=== PATIENT | female | born 1940 | race Caucasian/White ===

== ENCOUNTER 2017-03-11 14:41 | Emergency (ER) | payer OTHER, BC ==
--- NOTE | 2017-03-11 15:04 | PDOC ---
Rapid Medical Evaluation Chief Complaint: Pain, Acute Medical Evaluation: Allergies Allergy/AdvReac Type Severity Reaction Status Date / Time No Known Allergies Allergy Verified 03/11/17 15:02 03/11/17 15:03 I have performed a brief in-person evaluation of this patient. The patient presents with a chief complaint of:abdominal pain/constipation Pertinent physical exam findings:none I have ordered the following:ua, labs The patient will proceed to the ED for further evaluation.
[2017-03-11 15:06] VITALS: TEMP 97.9; BMI 23.0
[2017-03-11 16:59] LABS: BASOPHIL 0.5 % (0-2.0); MCH 30.1 pg (25.7-33.7); MCHC 33.2 g/dl (32.0-36.0); MEAN CELL VOLUME 90.7 fl (80-96); MEAN PLT VOLUME 8.6 fl (7.5-11.1); NEUTROPHILS 85.7 % (42.8-82.8); PLATELET COUNT 271 K/MM3 (134-434); WHITE BLOOD COUNT 13.9 K/mm3 (4.0-10.0)
[2017-03-11 17:37] LABS: ALBUMIN 4.4 g/dl (3.4-5.0); BILIRUBIN,TOTAL 0.5 mg/dL (0.2-1.0); CALCIUM 10.1 mg/dL (8.5-10.1); COCKROFT - GAULT 43.1545; TOT PROT 8.3 g/dl (6.4-8.2)
--- NOTE | 2017-03-11 18:23 | PDOC ---
History of Present Illness - General History Source: Patient Exam Limitations: No Limitations - History of Present Illness Initial Comments: 03/11/17 18:23 CHIEF COMPLAINT: Abdominal pain HISTORY OF PRESENT ILLNESS: This is a 77 year old female with a history of colon ca (in 1989 with recurrence in 1991, s/p resection and chemotherapy) HTN, NIDDM, and mild dementia who presents complaining of 3 days of intermittent, generalized abdominal pain and constipation. She was able to have a small bm yesterday and today, but still feels constipated. She complains of nausea. She denies fevers/chills, dysuria, or any other symptoms. V/s on arrival are notable for P 111. Surgical history: colon resection, cholecystectomy PCP is Dr. Gagnon GI is Dr. Neff REVIEW OF SYSTEMS: GENERAL/CONSTITUTIONAL: No fever or chills. No weakness. No weight change. HEAD, EYES, EARS, NOSE AND THROAT: No change in vision. No ear pain or discharge. No sore throat. CARDIOVASCULAR: No chest pain or palpitations. RESPIRATORY: No cough, wheezing, or shortness of breath. GASTROINTESTINAL: See HPI. GENITOURINARY: No dysuria, frequency, or change in urination. MUSCULOSKELETAL: No joint or muscle swelling or pain. No neck or back pain. SKIN: No rash or easy bruising. NEUROLOGIC: No headache, vertigo, loss of consciousness, or loss of sensation. PSYCHIATRIC: No depression or anxiety. ENDOCRINE: No increased thirst. No abnormal weight change. HEMATOLOGIC/LYMPHATIC: No anemia, easy bleeding, or history of blood clots. ALLERGIC/IMMUNOLOGIC: No hives or skin allergy. No latex allergy. PHYSICAL EXAM: GENERAL: The patient is awake, alert, and fully oriented, in no acute distress. HEAD: Normal with no signs of trauma. ENT: Pupils equal, round and reactive to light, extraocular movements intact, sclera anicteric, conjunctiva clear. Neck supple. LUNGS: Clear to auscultation bilaterally. Normal excursion. No respiratory distress or use of accessory muscles. CV: RRR, S1/S2, no MRG. Cap refill < 2 sec. ABDOMEN: Soft, non-distended, tender to palpation in RLQ>LLQ with some guarding , no rebound tenderness. EXTREMITIES: Normal range of motion, no edema. NEUROLOGICAL: Normal speech, normal gait. CN II-XII grossly intact. PSYCH: Normal mood, normal affect. SKIN: Warm, dry, normal turgor, no rashes or lesions noted. <Lucille Mejia - Last Filed: 03/11/17 18:29> <Serge Fernandez - Last Filed: 03/11/17 22:37> - General Chief Complaint: Pain Stated Complaint: ABD PAIN Time Seen by Provider: 03/11/17 16:40 Past History - Past Medical History Anemia: No Asthma: No Cancer: Yes (COLON CANCER) CVA: No COPD: No CHF: No Dementia: No Diabetes: No GI Disorders: Yes (CONSTIPATION,HEMORRHOIDS,EPIGASTRIC PAIN) Disorders: No HTN: No Hypercholesterolemia: No Liver Disease: No Seizures: No Thyroid Disease: No - Surgical History Abdominal Surgery: No Appendectomy: No Cardiac Surgery: No Cholecystectomy: Yes Lung Surgery: No Neurologic Surgery: No Orthopedic Surgery: No - Immunization History Immunization Up to Date: Yes - Psycho/Social/Smoking Cessation Hx Suicidal Ideation: No Smoking History: Never smoked Have you smoked in the past 12 months: No Hx Alcohol Use: No Drug/Substance Use Hx: No Substance Use Type: None Hx Substance Use Treatment: No <Lucille Mejia - Last Filed: 03/11/17 18:29> <Serge Fernandez - Last Filed: 03/11/17 22:37> - Past Medical History Allergies/Adverse Reactions: Allergies Allergy/AdvReac Type Severity Reaction Status Date / Time No Known Allergies Allergy Verified 03/11/17 15:02 Home Medications: Ambulatory Orders Donepezil HCl [Aricept -] 10 mg PO DAILY 06/09/14 Losartan/Hydrochlorothiazide [Losartan-Hctz 100-12.5 mg Tab] 1 tab PO DAILY 12/18 Raloxifene HCl [Evista] 1 tab PO DAILY 06/09/14 Polyethylene Glycol 3350 [Miralax (For Bowel Prep) -] 17 gm PO DAILY #1 bottle 03/11/17 *Physical Exam - Vital Signs Last Vital Signs Temp Pulse Resp BP Pulse Ox 97.9 F 111 H 18 156/94 100 03/11/17 15:03 03/11/17 15:03 03/11/17 15:03 03/11/17 15:03 03/11/17 15:03 <Lucille Mejia - Last Filed: 03/11/17 18:29> - Vital Signs Last Vital Signs Temp Pulse Resp BP Pulse Ox 97.9 F 111 H 18 156/94 100 03/11/17 15:03 03/11/17 15:03 03/11/17 15:03 03/11/17 15:03 03/11/17 15:03 <Serge Fernandez - Last Filed: 03/11/17 22:37> ED Treatment Course - LABORATORY CBC & Chemistry Diagram: 03/11/17 16:15 03/11/17 16:15 - ADDITIONAL ORDERS Additional order review: Laboratory Results 03/11/17 16:15 Sodium 136 Potassium 3.9 Chloride 98 Carbon Dioxide 23 Anion Gap 15 BUN 11 Creatinine 1.0 D Creat Clearance w eGFR 53.62 Random Glucose 225 H Calcium 10.1 Total Bilirubin 0.5 AST 32 ALT 32 Alkaline Phosphatase 110 Total Protein 8.3 H Albumin 4.4 Lipase 89 03/11/17 16:15 RBC 4.59 MCV 90.7 MCHC 33.2 RDW 13.0 MPV 8.6 Neutrophils % 85.7 H Lymphocytes % 9.8 Monocytes % 4.0 Eosinophils % 0.0 Basophils % 0.5 - RADIOLOGY Radiology Studies Ordered: Category Date Time Status ABDOMEN FLAT & UPRIGHT [RAD] Stat Radiology 03/11/17 18:15 Ordered <Lucille Mejia - Last Filed: 03/11/17 18:29> - LABORATORY CBC & Chemistry Diagram: 03/11/17 16:15 03/11/17 16:15 - ADDITIONAL ORDERS Additional order review: Laboratory Results 03/11/17 03/11/17 19:22 16:15 Sodium 136 Potassium 3.9 Chloride 98 Carbon Dioxide 23 Anion Gap 15 BUN 11 Creatinine 1.0 D Creat Clearance w eGFR 53.62 Random Glucose 225 H Calcium 10.1 Total Bilirubin 0.5 AST 32 ALT 32 Alkaline Phosphatase 110 Total Protein 8.3 H Albumin 4.4 Lipase 89 Urine Color Yellow Urine Appearance Clear Urine pH 5.0 Urine Protein 2+ H Urine Glucose (UA) 2+ H Urine Ketones Trace H Urine Blood Negative Urine Nitrite Negative Urine Bilirubin Negative Urine Urobilinogen Negative Ur Leukocyte Esterase Negative Urine RBC 1 Urine WBC 6 Ur Epithelial Cells Rare Urine Mucus Rare 03/11/17 16:15 RBC 4.59 MCV 90.7 MCHC 33.2 RDW 13.0 MPV 8.6 Neutrophils % 85.7 H Lymphocytes % 9.8 Monocytes % 4.0 Eosinophils % 0.0 Basophils % 0.5 <Serge Fernandez - Last Filed: 03/11/17 22:37> Medical Decision Making - Medical Decision Making 03/11/17 18:37 A/P: 77 year old female with abdominal pain, nausea, and constipation. 1. EKG (tachycardia) 2. Abdominal labs sent from [facility] - notable for WBC 13.6 3. UA 4. CTAP with PO/IV contrast <Lucille Mejia - Last Filed: 03/11/17 18:29> *DC/Admit/Observation/Transfer <Lucille Mejia - Last Filed: 03/11/17 18:29> - Discharge Dispostion Admit: No <Serge Fernandez - Last Filed: 03/11/17 22:37> Diagnosis at time of Disposition: Constipation Qualifiers: Constipation type: other constipation type Qualified Code(s): K59.09 - Other constipation - Discharge Dispostion Disposition: HOME Condition at time of disposition: Improved - Prescriptions Prescriptions: Polyethylene Glycol 3350 [Miralax (For Bowel Prep) -] 17 gm PO DAILY #1 bottle - Referrals Referrals: Drake Blakely MD [Staff Physician] - - Patient Instructions Printed Discharge Instructions: DI for Constipation Additional Instructions: FOLLOW UP WITH YOUR PRIMARY CARE PROVIDER WITHIN 72 HOURS FOR FURTHER EVALUATION. DRINK PLENTY WATER. TAKE MEDICATIONS PRESCRIBED. ALSO, FOLLOW UP WITH YOUR CLASSIFIER OR DR. BLAKELY (GASTROENTEROLOGY) REGARDING YOUR VISIT TODAY. RETURN IF YOU DEVELOP FEVER, OR ANY OTHER CONCERNS FOR FURTHER EVALUATION. Print Language: PORTUGUESE
[2017-03-11 19:32] LABS: URINE APPEARANCE CLEAR; URINE BILIRUBIN NEGATIVE (NEGATIVE); URINE BLOOD NEGATIVE (NEGATIVE); URINE COLOR YELLOW; URINE GLUCOSE (UA) 2+ (NEGATIVE); URINE KETONE TRACE (NEGATIVE); URINE LEUK ESTERASE NEGATIVE (NEGATIVE); URINE NITRITE NEGATIVE (NEGATIVE); URINE UROBILINOGEN NEGATIVE E.U./dl (0.2-1.0)
--- NOTE | 2017-03-11 19:38 | PDOC ---
*Physical Exam - Vital Signs Last Vital Signs Temp Pulse Resp BP Pulse Ox 97.9 F 111 H 18 156/94 100 03/11/17 15:03 03/11/17 15:03 03/11/17 15:03 03/11/17 15:03 03/11/17 15:03 ED Treatment Course - LABORATORY CBC & Chemistry Diagram: 03/11/17 16:15 03/11/17 16:15 - ADDITIONAL ORDERS Additional order review: Laboratory Results 03/11/17 16:15 Sodium 136 Potassium 3.9 Chloride 98 Carbon Dioxide 23 Anion Gap 15 BUN 11 Creatinine 1.0 D Creat Clearance w eGFR 53.62 Random Glucose 225 H Calcium 10.1 Total Bilirubin 0.5 AST 32 ALT 32 Alkaline Phosphatase 110 Total Protein 8.3 H Albumin 4.4 Lipase 89 03/11/17 16:15 RBC 4.59 MCV 90.7 MCHC 33.2 RDW 13.0 MPV 8.6 Neutrophils % 85.7 H Lymphocytes % 9.8 Monocytes % 4.0 Eosinophils % 0.0 Basophils % 0.5 Medical Decision Making - Medical Decision Making 03/11/17 19:37 Pt seen by the Advanced Practice Provider under my direct supervision Ancillary studies reviewed I agree with plan as outlined by the Advanced Practice Provider FAM Mejia
[2017-03-11 19:43] LABS: URINE PROTEIN 2+ (NEGATIVE)
[2017-03-11 21:31] LABS: URINE MUCUS RARE; URINE RBC 1 /hpf (0-3); URINE WBC 6 /hpf (3-5)
[2017-03-11 22:49] VITALS: BP 152/74; PULSE 82
--- NOTE | 2017-03-12 11:45 | EKG ---
Test Reason : Blood Pressure : / mmHG Vent. Rate : 108 BPM Atrial Rate : 108 BPM P-R Int : 168 ms QRS Dur : 086 ms QT Int : 344 ms P-R-T Axes : 034 -47 061 degrees QTc Int : 460 ms SINUS TACHYCARDIA WITH PREMATURE ATRIAL COMPLEXES LEFT ANTERIOR FASCICULAR BLOCK POOR R WAVE PROGRESSION ABNORMAL ECG WHEN COMPARED WITH ECG OF 13-AUG-2007 15:40, PREMATURE ATRIAL COMPLEXES ARE NOW PRESENT VENT. RATE HAS INCREASED BY 36 BPM CLINICAL CORRELATION IS RECOMMENDED Confirmed by ERNIE PICKENS MD ([id number]) on 03/12/2017 11:45:22 AM Referred By: Confirmed By:ERNIE PICKENS MD
== END 2017-03-11 22:49 | disposition home or self-care (01) ==
LOC: JER 14:41
DX: K59.00 Constipation, unspecified (principal); I10 Essential (primary) hypertension; E11.9 Type 2 diabetes mellitus without complications; Z79.84 Long term (current) use of oral hypoglycemic drugs; Z85.038 Personal history of other malignant neoplasm of large intestine
CPT/HCPCS: 36415; 74177-TC; 80053; 81003; 81015; 83690; 85025; 93005; 93010; 99284-25; Q9967